=== PATIENT | male | born 1950 | race Caucasian/White ===

== ENCOUNTER → 2017-03-19 | Day surgery (SDC) | payer OTHER ==
[~2017-03-19] VITALS: Ht 170.2 cm; Wt 95.1 kg
[~2017-03-19] MED LIST: Belladonna Alk-Opium 60 mg Rectal Suppository RECTAL ONE; CeFAZolin 2 Gm/50 mL D5W IV Premix IV ONE; CeFAZolin Inj 2 gm / 50mL D5W IV ONE; Dexamethasone 4 mg/mL Inj IVPUSH PRN; Dexamethasone 4 mg/mL Inj ONE; EPHEDrine Sulfate 50 mg/mL Inj IVPUSH PRN; HYDROcodone-APAP 5-325 mg Tablet PO PRN; Lactated Ringer's 1,000 ML IV SCH; Lactated Ringer's 500 ML IV PRN; MULT-1018 PO; MetoCLOpramide 5 mg/mL 2 mL Inj IVPUSH PRN; Ondansetron 2 mg/mL 2 mL Inj IVPUSH PRN; Ondansetron 2 mg/mL 2 mL Inj ONE; Ondansetron 8 mg ODT Tablet PO PRN; Phenazopyridine 97.5 mg Tablet PO PRN; Phenylephrine 10,000 mCg/mL Inj IVPUSH PRN; Propofol 10,000 mCg/mL 20 mL Inj ONE; fentaNYL-PF 50 mCg/mL 2 mL Inj IVPUSH PRN; fentaNYL-PF 50 mCg/mL 2 mL Inj ONE
[2017-03-19] MEDS: Lactated Ringer's 1,000 ML IV SCH ×3 (05:29→09:26)
[2017-03-19 07:12] VITALS: BP 112/66; PULSE 66; RESP 16; O2SAT 96
--- NOTE | 2017-03-19 09:22 | PCM.HPANE ---
Patient Data Surgeon Admitting Provider: Attending Provider:Anne-Marie Szymanski MD Primary Care Physician:Other,Physician Other Provider:Concepcion Hernandez Anesthesia Reason for Visit Gross Hematuria Ht/WT & BMI Height (Feet): 5 Height (Inches): 7.00 Weight (Kilograms): 95.1 Body Mass Index 32.00 Allergies Coded Allergies: No Known Allergies (Unverified , 03/17/17) Past Anesthesia History Anesthesia History: Denies:: Abnormal Airway, Anesthesia Reactions, Difficult Intubation, Fam Anesthesia Reaction, Fam Malignant Hypertherm, Malignant Hyperthermia Diabetes History Hx Diabetes?: No MRSA MRSA: No Medications Hypertension Medication: No Home Meds Incl Beta July: No Reported Medications Multivitamin (Multi Vitamin Daily)1 Each Tablet1 Each PO DAILY 30 Days Ref 0 03/17/17 History History of ENT Problems?: No HEENT History: Denies:: Abnormal Airway Cataracts Difficult Intubation Dysphagia Glaucoma Hearing Problem Sinus Problem TMJ Denture Type: None Teeth Condition: Within Normal Limits Hx of Heart Problems?: No Cardiovascular History: Denies:: AICD Abdominal Aortic Aneurism Atrial Fibrillation Cardiac Surgery Chest Pain Congestive Heart Failure Coronary Artery Disease Edema Heart Murmur Hypertension Irregular Heartbeat Pacemaker Peripheral Vascular Rheumatic Fever Thrombophlebitis Valvular Heart Disease Hx of Respiratory Problem?: No Respiratory History: Denies:: Asthma COPD Chest Surgery Cough Dyspnea Emphysema Hemoptysis Oxygen Administration Pneumonia Pulmonary Embolism Tuberculosis Use of C-PAP Machine Use of Inhalers / NEBS Hx Neurologic Problems?: No Neurological History: Denies:: Alzheimer's Disease CVA Dementia Dizziness Headaches Multiple Sclerosis Parkinson's Disease Peripheral Neuropathy Seizures TIA Hx of GI Problems?: No Gastrointestinal History: Denies:: Cirrhosis Diverticulitis Gall Bladder Disease Gastroesphageal Reflux Gastrointestinal Bleeding Heartburn Hepatitis Hiatal Hernia Liver Disease Rectal Bleeding Hx of Problems?: Yes Genitourinary History: Denies:: HX of Hemodialysis Kidney Stones Urinary Tract Infection HX of Peritoneal Dialysis: No Other Pertinent History: gross hematuria current admission problem Male Hx: Positive for:: Prostate Problems (radical prostatectomy hx ) Denies:: Scrotal Mass Testicular Surgery Skin History: Denies:: History Skin Disorders? Pressure Ulcers Hx Musculoskeletal Problems?: Yes Musculoskeletal History: Positive for:: Back Injury (back pain) Denies:: Degenerative Joint Fibromyalgia Joint Replacement Musculoskeletal Trauma Myasthenia Gravis Osteoarthritis Rheumatoid Arthritis Systemic Lupus Hx of Psycho/Social Problems?: No Psycho Social History: Denies:: Anxiety Bipolar Disorder Hx Depression (recently lost after long illness) Suicide Attempt Hx Surgeries?: Yes (prostatectomy) Hx Any Other Health Problems?: Yes Other History: Positive for:: Cancer (prostate) Denies:: Thyroid Disease History Blood Transfusions: Positive for:: Accept Blood Products? Denies:: Blood Transfusions Hx Diabetes: No Hx Alcohol Use: NoHx Substance Use: NoHave You Smoked inLast 12 mo: No Stop/Bang S-Snoring: Do You Snore Loudly: No T-Tired: feel tired, fatigued: No O-Obsered: Observed not breath: No P-Blood Pressure: treated: No B- Body Mass Index > 35 kg/m2: No A- Age over 50: Yes N- Neck Large Circumference: No G- Gender Male: Yes JAYY Total Score: 2 Risk Assessment Category Category 1A: Patient has history of documented sleep apnea, and HAS NOT received any narcotic, sedative or anesthesia administration during this stay. Category 1B: Patient has history of documented sleep apnea, and HAS received any narcotic , sedative or anesthesia administration during this stay Category 2: Patient has SUSPECTED Obstructive Sleep Apnea, and HAS received any narcotic , sedative or anesthesia administration during this stay. Category 3: Patient has SUSPECTED Obstructive Sleep Apnea and HAS NOT received narcotic, sedative or anesthesia administration during this stay. Category 4: Outpatient in Procedural Areas with known sleep apnea or who screen positive for High Risk via the STOP/BANG questionnaire. Exam Exam Vital Signs Vital Signs Date Time Temp Pulse Resp B/P Pulse Ox O2 Delivery O2 Flow Rate FiO2 03/19/17 07:12 36.4 66 16 112/66 96 Room Air General Appearance: Alert, Oriented X3, Cooperative, No Acute Distress HEENT/AIRWAY: MP 2, Neck Movement (FROM), Mouth Opening (3 FBMO) Lungs: Clear to Auscultation, Normal Air Movement Heart: Exam Unremarkable, Regular Rate/Rhythm, No Murmurs/Rubs/Gallops Meds/Labs/Diagnostics Admission Meds Current Medications Lactated Ringer's (Lr) 1,000 ml @ 120 mls/hr [id number] IV Last administered on t 05:29; Start 03/19/17 at 05:00; Stop 03/19/17 at 13:19 Plan Impression Patient chart reviewed, patient interviewed and anesthestic plan with risks, benefits, and alternatives discussed, and informed consent obtained. NPO per Anesth. Guidelines: Yes ASA Physical Status: ASA2 Mod Systemic Disease Anesthetic Plan: GA Bene/Risks/Altern/Consents: Yes HP Complete Prior to Induction: Yes Juni Parks MD Mar 19, 2017 08:00
[2017-03-19 09:33] VITALS: BP 110/59; PULSE 57; RESP 14; O2SAT 98
[2017-03-19 09:40] VITALS: BP 110/65; PULSE 61; RESP 12; O2SAT 98
[2017-03-19 09:45] VITALS: BP 106/69; PULSE 64; RESP 11; O2SAT 98
[2017-03-19 09:50] VITALS: BP 103/67; PULSE 67; RESP 14; O2SAT 94
[2017-03-19 10:00] VITALS: BP 117/65; PULSE 69; RESP 16; O2SAT 95
--- NOTE | 2017-03-19 10:25 | PCM.ANEP1 ---
Post Anesthesia PACU Phase 1 Assessment Vital Signs Vital Signs Date Time Temp Pulse Resp B/P Pulse Ox O2 Delivery O2 Flow Rate FiO2 03/19/17 10:00 36.3 69 16 117/65 95 Room Air 03/19/17 09:50 67 14 103/67 94 Room Air 03/19/17 09:45 64 11 106/69 98 Simple Mask 8 03/19/17 09:40 61 12 110/65 98 Simple Mask 8 03/19/17 09:33 36.2 57 14 110/59 98 Simple Mask 8 03/19/17 07:12 36.4 66 16 112/66 96 Room Air Anesthetic Administered: GA Level of Alertness: Awake, talking LEUNG's with Equal Strength: Yes Pain: No Nausea or Vomiting: No CV Function & Hydration Stable: Yes Airway Device: n/a Oxygen Delivery: Room Air Lungs: Clear to Auscultation, Normal Air Movement Dermatome Level: Full Sensation PACU Phase 2 Assessment Complications: No Follow up Care: N/A Patient Instructions Provided: N/A Juni Parks MD Mar 19, 2017 10:25
--- NOTE | 2017-03-20 20:16 | OP ---
[address] [address] OPERATIVE REPORT PATIENT: VERN NEWBERRY : 1950 MR#: [id number] ADMIT: 03/19/2017 JOB ID: [id number] DATE OF SURGERY: 03/19/2017 SURGEON: Anne-Marie Szymanski MD. PROCEDURE: Cystoscopy with bladder biopsy and fulguration, total of five biopsies. PREOPERATIVE DIAGNOSIS(ES): Bladder erythema, microscopic hematuria. POSTOPERATIVE DIAGNOSIS(ES): Bladder erythema, microscopic hematuria. INDICATIONS: The patient is a 67-year-old gentleman followed by Dr. Gianna Simmons for microscopic hematuria. On his workup, he had some erythematous areas of the bladder seen without any evidence of mass of tumor in his bladder. He was counseled about advisability of biopsy to rule out carcinoma in situ. No other changes. He wished to proceed. PROCEDURE IN DETAIL: After appropriate informed consent was obtained, the patient was brought to the operating room. He received IV antibiotics prior to onset of the procedure. SCDs were placed. Adequate general anesthesia induced. He was carefully placed in dorsal lithotomy position. All pressure points carefully padded. Cleaned, prepped, and draped in the usual sterile fashion. Rigid scope was introduced into his bladder which was surveyed systematically. He had one notable erythematous, somewhat velvety patch in the left trigone area, lateral and caudad to the left ureteral orifice, and some other areas of milder erythema posterior. Several biopsies were taken. Biopsy was taken of the more marked erythematous area and handed off separately as left bladder trigone erythema. 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 These were handed off together also as bladder erythema. Each biopsied area was cauterized to an area of 0.5-1 cm in size. None of the ureteral orifices were involved in biopsy or the cauterization. At the termination of the procedure, hematuria was dealt with. Urine was clear. The bladder was drained. The patient was awakened, taken in stable condition to the postanesthesia care unit.
--- NOTE | 2017-03-24 17:17 | PATH ---
SURGICAL PATHOLOGY Attending Physician:Anne-Marie Szymanski MD CASE STATUS: Signed Out PATIENT NAME: VERN NEWBERRY PID: [id number] : 1950 DATE COLLECTED:03/19/2017 20:42 SPECIMEN: 1: Bladder, Biopsy 2: Bladder, Biopsy 3: Bladder, Biopsy CLINICAL HISTORY: GROSS HEMATURIA, BLADDER ERYTHEMA 1). LEFT BLADDER TRIGONE, LARGEST ERYTHEMA PATCH (OUT AT 9:20, FIXATIVE AT 9:21) 2). POSTERIOR WALL, HYPERVASCULAR PATCH (OUT AT 9:21, FIXATIVE AT 9:21) 3). RIGHT BLADDER TRIGONE, HYPERVASCULAR PATCH (OUT AT 9:22, FIXATIVE AT 9:22) FINAL DIAGNOSIS: 1.LEFT BLADDER TRIGONE, LARGEST ERYTHEMATOUS PATCH, BIOPSY: UROTHELIAL MUCOSA NEGATIVE FOR NEOPLASM. HEMOSIDERIN-LADEN MACROPHAGES OF THE LAMINA PROPRIA SUGGESTIVE OF PRIOR INJURY. MUSCULARIS PROPRIA ABSENT. 2.POSTERIOR WALL, HYPERVASCULAR PATCH, BIOPSY: UROTHELIAL MUCOSA NEGATIVE FOR NEOPLASM. MUSCULARIS PROPRIA PRESENT. 3.RIGHT BLADDER TRIGONE, HYPERVASCULAR PATCH, BIOPSY: UROTHELIAL MUCOSA NEGATIVE FOR NEOPLASM. MUSCULARIS PROPRIA PRESENT. ICD10 R31.2 NOTE: As part of a routine customer quality specialist, Dr. Phillip has reviewed the initial level from each part of this case and agrees with the diagnosis. Additional step-sections are examined in each part. GROSS DESCRIPTION: The specimens are received in formalin, labeled with the patient's name, and sublabeled as the following: (1) left bladder trigone; (2) posterior wall; (3) right bladder trigone. (1) The specimen consists of a fragment of chow glistening rubbery tissue (0.4 x 0.3 x 0.1 cm). Section code: (1A) tissue. Specimen entirely submitted. (2) The specimen consists of multiple fragments of chow-white glistening rubbery tissue (0.8 x 0.3 x 0.2 cm in aggregate). Section code: (2A) tissue. Specimen entirely submitted. (3) The specimen consists of a fragment of chow-white glistening tissue (0.3 x 0.2 x 0.1 cm). Section code: (3A) tissue. Specimen entirely submitted. 03/20/17 JM MICRO DESCRIPTION: See diagnosis. ICD-9 CODES: CPT CODES: 1: 13133 2: 29422 3: 12976 Electronically Signed Out Mauri Webb MD, Ph.D. Formerly [facility] [address], [place] [address] Technical component performed at [facility], [facility] [address], [place], [address]
== END | disposition home or self-care (01) ==
LOC: SAS 06:42
PROVIDERS: ATTEND Urology
DX: N32.89 Other specified disorders of bladder (principal); R31.0 Gross hematuria; L53.8 Other specified erythematous conditions; Z90.79 Acquired absence of other genital organ(s); Z85.46 Personal history of malignant neoplasm of prostate
CPT/HCPCS: 52204; J0690; J1100; J1885; J2405; J2704; J3010; J7120